=== PATIENT | male | born 1980 | race Caucasian/White ===

== ENCOUNTER 2017-04-14 12:34 | Emergency (ER) | payer SELFPAY ==
[2017-04-14 13:48] LABS: BASO % 0.2 % (0.0-1.0); EOS % 0.3 % (0.0-3.0); HEMATOCRIT 46.2 % (42.0-52.0); HEMOGLOBIN 15.7 g/dl (14.0-18.0); IMMATURE GRANULOCYTE % 0.5 % (0-3.0); LYMPH # 2.7 10^3/uL (1.5-4.5); LYMPH % 17.8 % (24.0-44.0); MEAN CORPUSCULAR HEMOGLOBIN 29.1 pg (27.0-33.0); MEAN CORPUSCULAR VOLUME 85.7 fl (80.0-96.0); MONO # 0.7 10^3/uL (0.0-0.8); MONO % 4.9 % (0.0-5.0); NEUTROPHILS # 11.4 10^3/uL (1.8-7.7); NEUTROPHILS % 76.3 % (36.0-66.0); PLATELET COUNT, AUTOMATED 321 10^3/uL (150-450); RED BLOOD COUNT 5.39 10^6/uL (4.30-6.10); RED CELL DISTRIBUTION WIDTH 13.9 % (11.5-14.5)
[2017-04-14] MEDS: NS 1,000 ML IV (14:00)
[2017-04-14 14:55] LABS: ANION GAP 4 MEQ/L (8-16); BLOOD UREA NITROGEN 10 MG/DL (7-18); CALCIUM LEVEL 8.2 MG/DL (8.5-10.1); CARBON DIOXIDE LEVEL 24 MEQ/L (21-32); CHLORIDE LEVEL 110 MEQ/L (98-107); GLOMERULAR FILTRATION RATE > 60.0 (>60); GLUCOSE, FASTING 86 MG/DL (70-100); POTASSIUM SERUM 4.1 MEQ/L (3.5-5.1); SODIUM LEVEL 138 MEQ/L (136-145)
== END 2017-04-14 16:12 | disposition home or self-care (01) ==
LOC: M ED 12:34
DX: R19.7 Diarrhea, unspecified (principal); Z88.5 Allergy status to narcotic agent; F17.210 Nicotine dependence, cigarettes, uncomplicated
CPT/HCPCS: 80048

== ENCOUNTER → 2017-04-15 | Outpatient (CLI) | payer SELFPAY | LOC: M LAB 10:20 | DX: R19.7 Diarrhea, unspecified (principal) ==

== ENCOUNTER 2019-06-19 07:49 | Emergency (ER) | payer OTHER, SELFPAY ==
[~2019-06-19] VITALS: Ht 167.6 cm; Wt 92.6 kg
[~2019-06-19 07:49] MED LIST: FLAG500T PO
[2019-06-19] MEDS ORDERED: LIDOCAINE 1% MDV 20ML VIAL SC ONE (09:15)
[2019-06-19] MEDS ORDERED: CEPHALEXIN 500 MG CAP PO ONE (09:15)
--- NOTE | 2019-06-19 09:40 | REP ---
LEFT FINGER SERIES: Four views. HISTORY: Trauma distal aspect middle finger. No comparison images. FINDINGS: There is extensive soft tissue irregularity consistent with laceration at the DIP joint level of the left long finger. There is a chip fracture of the distal end of the middle phalanx at the DIP joint indicating an open intra-articular injury. No malalignment. No visible opaque foreign body. IMPRESSION: Open laceration chip fracture intra-articular DIP joint long finger. Fracture fragment from the distal aspect of the middle phalanx. Electronically Signed by Aquilino Silva MD 06/19/2019 10:57 A
[2019-06-19] MEDS ORDERED: KEFL500C17 PO (10:31)
[2019-06-19 10:51] VITALS: BP 148/84
== END 2019-06-19 10:58 | disposition home or self-care (01) ==
LOC: M ED 07:49
DX: S62.633B Displaced fracture of distal phalanx of left middle finger, initial encounter for open fracture (principal); X58.XXXA Exposure to other specified factors, initial encounter; Y92.89 Other specified places as the place of occurrence of the external cause; Y99.0 Civilian activity done for income or pay; Z88.5 Allergy status to narcotic agent

== ENCOUNTER 2020-04-25 13:03 | Emergency (ER) | payer OTHER, SELFPAY ==
[~2020-04-25] VITALS: Ht 170.2 cm; Wt 94.5 kg
[~2020-04-25 13:03] MED LIST changes: +KEFL500C17 PO
[2020-04-25 13:17] VITALS: BP 143/80
--- NOTE | 2020-04-25 13:47 | REP ---
INDICATION: injury. pain COMPARISON: None. FINDINGS: There is no fracture or dislocation. Mineralization and joint spaces are normal. There are no calcifications or foreign bodies. IMPRESSION: Negative . <Electronically signed by Tim Ledesma > 04/25/20 [id number]
== END 2020-04-25 14:15 | disposition home or self-care (01) ==
LOC: M ED 13:03
DX: S53.402A Unspecified sprain of left elbow, initial encounter (principal); X58.XXXA Exposure to other specified factors, initial encounter; Y92.099 Unspecified place in other non-institutional residence as the place of occurrence of the external cause; Y93.9 Activity, unspecified; Y99.9 Unspecified external cause status; F17.200 Nicotine dependence, unspecified, uncomplicated; Z88.5 Allergy status to narcotic agent